=== PATIENT | female | born 1995 | race Caucasian/White ===

== ENCOUNTER 2016-12-29 15:36 | Emergency (ER) | payer OTHER ==
[2016-12-29 17:37] LABS: BASO % 0.3 % (0.1-1.2); EOS # 0.1 10_X3_uL (0.0-0.4); EOS % 0.8 % (0.7-5.8); GRAN # 3.8 10_X3_uL (1.6-6.1); GRAN % 51.2 % (34.0-71.1); HEMATOCRIT 38.8 % (34-45); HEMOGLOBIN 13.5 g/dL (11.2-15.7); LYMPH # 2.9 10_X3_uL (1.2-3.7); LYMPH % 38.9 % (19.3-51.7); MEAN CORPUSCULAR HEMOGLOBIN 34.1 pg (27.0-33.0); MEAN CORPUSCULAR HGB CONC 34.8 g/dL (32.0-36.0); MEAN PLATELET VOLUME 9.8 fl (7.5-11.5); MONO # 0.7 10_X3_uL (0.2-0.9); MONO % 8.8 % (4.7-12.5); PLATELET COUNT 283 x10_3/uL (182-369); RED BLOOD COUNT 3.96 x10_6/uL (3.9-5.2); RED CELL DISTRIBUTION WIDTH 12.2 % (11.7-14.4); WHITE BLOOD COUNT 7.4 x10_3/uL (4.0-10.0)
[2016-12-29 17:40] LABS: URINE BILIRUBIN NEGATIVE (NEGATIVE); URINE BLOOD NEGATIVE (NEGATIVE); URINE GLUCOSE (UA) NORMAL (NORMAL); URINE KETONE NEGATIVE (NEGATIVE); URINE LEUKOCYTE ESTERASE NEGATIVE (NEGATIVE); URINE NITRATE NEGATIVE (NEGATIVE); URINE PROTEIN NEGATIVE (NEGATIVE); UROBILINOGEN NORMAL mg/dL (<1.0)
[2016-12-29 17:50] LABS: AHDL CHOLESTEROL 54 mg/dL (>40); ALBUMIN 4.8 gm/dL (3.4-5.0); ALKALINE PHOSPHATASE 88 U/L (50-136); ALT/SGPT 19 U/L (3.5-33.9); AMYLASE 48 U/L (15.62-74.58); AST/SGOT 18 U/L (7.04-26.96); BILIRUBIN,TOTAL 0.41 mg/dL (0.0-1.0); BLOOD UREA NITROGEN 10 mg/dL (7-18); CALCIUM 9.6 mg/dL (8.7-10.7); CARBON DIOXIDE 24 mmol/L (21-32); CHOLESTEROL 164 mg/dL (0-200); CREATININE < 0.5 mg/dL (0.6-1.3); GLUCOSE,RANDOM 95 mg/dL (70-99); LDL CHOLESTEROL 103 mg/dL (0-99); LIPASE 28 U/L (6.75-60.75); POTASSIUM 3.7 mmol/L (3.5-5.1); SODIUM 139 mmol/L (136-145); TOTAL PROTEIN 7.4 gm/dL (6.4-8.2); TRIGLYCERIDES 57 mg/dL (30-200)
== END 2016-12-29 19:11 | disposition home or self-care (01) ==
LOC: ER 15:36
PROVIDERS: Emergency Medicine
DX: R10.9 Unspecified abdominal pain (principal); R19.7 Diarrhea, unspecified
CPT/HCPCS: 36415; 74150; 80053; 80061; 81003; 81025; 82150; 83690; 85025; 99070; 99284; 99284-25